=== PATIENT | male | born 1970 | race Caucasian/White ===

== ENCOUNTER 2025-01-13 21:47 | Emergency (ER) | payer OTHER ==
[~2025-01-13] VITALS: Ht 167.6 cm; Wt 88.0 kg
[2025-01-13 22:06] VITALS: TEMP 36.9; O2SAT 99
[2025-01-14 05:47] VITALS: BP 156/98; PULSE 86; RESP 16; O2SAT 100
== END 2025-01-14 05:56 | disposition home or self-care (01) ==
LOC: ER 21:47
DX: F10.129 Alcohol abuse with intoxication, unspecified (principal); I10 Essential (primary) hypertension; Z59.02 Unsheltered homelessness; Y90.9 Presence of alcohol in blood, level not specified; Z79.899 Other long term (current) drug therapy
CPT/HCPCS: 82962; 99283